=== PATIENT | male | born 1950 | race Caucasian/White ===

== ENCOUNTER → 2024-10-30 12:19 | Outpatient (REF) | payer MEDICARE, SELFPAY | LOC: RAD 12:19 | PROVIDERS: ATTENDING PHYSICIAN Student in an Organized Health Care Education/Training Program | DX: I35.0 Nonrheumatic aortic (valve) stenosis (principal) | CPT/HCPCS: 74174; 75572; Q9967 ==

== ENCOUNTER 2024-11-06 08:20 | Day surgery (SDC) | payer MEDICARE, SELFPAY ==
[2024-11-06] VITALS (14 sets, daily range): BP systolic 92–149; BP diastolic 58–89; BMI 29.4
[2024-11-06 09:13] LABS: INR 1.16; PT 15.3 Sec (11.4-14.6)
[2024-11-06] MEDS: LOW STRENGTH ASPIRIN 324 MG PO (10:12)
--- NOTE | 2024-11-06 11:51 | ITS.CL.PN ---
Addendum entered and electronically signed by Julio C Galvin MD 11/11/24 21:46:
Correct date of procedure: 11/06/2024
Original Note:
[facility] - Procedure Note
Procedure
Procedure Note:
CARDIAC CATHETERIZATION REPORT
Date of Procedure: 08/09/2024
Referring: Dr. Ted Kraus MD
Indication: Severe aortic stenosis
PROCEDURE(S)
1. right heart catheterization
2. left heart catheterization
3. coronary angiography
ACCESS
1. 6F right radial artery (closure: radial band)
2. 5F right antecubital vein (closure: manual hemostasis)
CATHETERS
1. 5F [place]
2. 6F JR4
3. 6F JL3.5
MODERATE SEDATION: 30 minutes of moderate sedation was utilized. An independent medical insurance coding specialist was present to assist with and help manage the patient's level of consciousness and physiologic status.
HEMODYNAMIC DATA
LV 222/20 (EDP 30) mmHg
AO 152/78 (mean 112) mmHg
RA 14 mmHg
RV 57/8 (EDP 17) mmHg
PA 55/24 (mean 37) mmHg
PCWP 26 mmHg
SaO2 95.9 %
SvO2 75.9%
Hb 15.0 g/dL
CO/CI 6.67/3.06 L/min/m2
SVR 1176 dsc*-5
PVR 1.7 Wood units
CORONARY ANGIOGRAPHY
Dominance: Right
LM: Large with minimal disease
LAD: Large vessel giving rise to a large branching D1 supplying much of the anterior wall. There are mild luminal irregularities only.
LCx: Large vessel giving rise to a small OM1 and large OM2. There are mild luminal irregularities only.
RCA: Very large vessel giving rise to a large RPDA and large RPL branch. There are mild luminal irregularities only.
RADIATION: dose to 52 mGy; DAP 18 Gy*cm2; fluoroscopy time 2.5 min
CONCLUSIONS
1. Nonobstructive coronary artery disease in a right dominant system
2. Severe aortic stenosis with peak to peak pullback gradient of 70 mmHg
3. Severely elevated biventricular filling pressures, moderate pulmonary hypertension, normal cardiac output
RECOMMENDATIONS
1. Secondary prevention of coronary artery disease
2. Start PO Lasix 20 qD
2. Proceed with TAVR
Copy to: Dr. Ted Kraus MD (liner checker); Dr. Wallace Horvath DO (PCP)
Signed: Julio C Galvin MD, PhD
== END 2024-11-06 15:35 | disposition home or self-care (01) ==
LOC: CATH 08:20
PROVIDERS: ATTENDING PHYSICIAN Student in an Organized Health Care Education/Training Program; FAMILY PHYSICIAN Student in an Organized Health Care Education/Training Program
DX: I25.10 Atherosclerotic heart disease of native coronary artery without angina pectoris (principal); I35.0 Nonrheumatic aortic (valve) stenosis; I48.91 Unspecified atrial fibrillation; I27.20 Pulmonary hypertension, unspecified; R06.09 Other forms of dyspnea; J45.909 Unspecified asthma, uncomplicated; Z79.01 Long term (current) use of anticoagulants
CPT/HCPCS: 99152; 99153; C1894; 85610; 93460; Q9967

== ENCOUNTER 2024-12-18 08:59 | Inpatient (IN) | payer MEDICARE, SELFPAY ==
[2024-12-11 12:07] VITALS: BMI 30.4
[2024-12-11 13:03] LABS: Urine Character Clear (Clear)
[2024-12-11 13:03] LABS: Hematocrit 43.6 % (39.0-52.0); Hemoglobin 14.8 g/dL (13.0-18.0); Mean Corp Hgb Conc. 33.9 g/dL (33.0-37.0); Mean Corpuscular Volume 91.2 fL (80.0-94.0); Nucleated Red Blood Cells % 0 % (-); Platelet Count 252 10^3/uL (130-400); Red Cell Dist. Width 15.4 % (11.5-14.5)
[2024-12-11 13:08] LABS: INR 2.52; PT 27.2 Sec (11.4-14.6)
[2024-12-11 13:09] LABS: APTT 54.3 Sec (23.4-35.0)
[2024-12-11 13:38] LABS: Urine Squamous Cell 0-2 /LPF (Few)
[2024-12-11 13:40] LABS: Urine Red Blood Cell 0-2 /HPF (0-2); Urine White Cell >100 /HPF (0-5)
[2024-12-11 14:10] LABS: ALT (SGPT) 34 U/L (0-50); AST (SGOT) 28 U/L (17-59); Albumin 4.3 g/dl (3.5-5.0); Alkaline Phosphatase 92 U/L (38-126); Blood Urea Nitrogen 22 mg/dl (9-20); Calcium 9.4 mg/dl (8.4-10.2); Carbon Dioxide 31 mmol/L (22-30); Chloride 107 mmol/L (98-107); Estimated Creatinine Clearance 70 ml/min; Glucose 81 mg/dl (70-99); Potassium 3.3 mmol/L (3.5-5.1); Sodium 145 mmol/L (135-145); Total Protein 6.5 g/dl (6.3-8.2); eGFR > 60.00
--- NOTE | 2024-12-11 14:23 | CM ---
spoke to pt in PAT's, he is prev indep, lives alone in a 1 story home with 1 [address]. he uses a walker when needed. he has the TAVR educ book, soap and in structions. he is agreeable to a f/u visit form the ct transitioanl care nurse after dc.
his daughter is nearby and supportive. plan isfor TAVR 12/18. cm role explained and all questions answered.
[2024-12-11 14:27] LABS: Glycohemoglobin (HgbA1c) 5.5 % (4.0-5.6)
[2024-12-18] VITALS (16 sets, daily range): BP systolic 118–146; BP diastolic 47–83; BMI 30.2
[2024-12-18 10:19] LABS: INR 1.31; PT 16.8 Sec (11.4-14.6)
--- NOTE | 2024-12-18 10:47 | W.CVOR.SURPR ---
CVOR Surgeon Immed Pre Op
-
I have examined this patient prior to performance of the scheduled procedure.
The patient's condition is unchanged from the time of the dictated/written History and
Physical and the patient is able to undergo the scheduled procedure.
TF TAVR
Full Rescue
[2024-12-18] MEDS: ANCEF 10 IV (11:32)
[2024-12-18 12:29] LABS: ACT-LR - POC 369 Seconds (116-155)
--- NOTE | 2024-12-18 13:12 | ITS.CL.PN ---
[facility] - Procedure Note
Procedure
Procedure Note:
TRANSCATHETER AORTIC VALVE REPLACEMENT REPORT
Date of Procedure: 12/18/2024
Referring: Dr. Papa Kraus MD
Indication: severe symptomatic aortic valve stenosis
Operators: Julio C Galvin MD, PhD (interventional cardiology); Dr. Marcos Rose MD (CT surgery)
Anesthesia: conscious sedation provided by the anesthesia staff
PROCEDURE: transfemoral, transcatheter aortic valve replacement with a Medtronic Evolut FX+ 34 mm transcatheter aortic valve
ACCESS:
1. 6F left femoral vein (closure: manual hemostasis) - Ultrasound was utilized for vascular access. The vessel was visualized under ultrasound and noted to be patent. An image of the vessel was stored permanently in the patient's medical record.
Under direct ultrasound guidance, vascular access was obtained using a modified Seldinger technique and a 6 Thai sheath was placed.
2. 6F left common femoral artery (closure: Angioseal) - Ultrasound was utilized for vascular access. The vessel was visualized under ultrasound and noted to be patent. An image of the vessel was stored permanently in the patient's medical record.
Under direct ultrasound guidance, vascular access was obtained using a modified Seldinger technique and a 6 Thai sheath was placed.
3. 18 F right common femoral artery (closure: Perclose x2) - Ultrasound was utilized for vascular access. The vessel was visualized under ultrasound and noted to be patent. An image of the vessel was stored permanently in the patient's medical
record. Under direct ultrasound guidance, vascular access was obtained using a modified Seldinger technique and a 8 Thai sheath was placed.
HEMODYNAMIC DATA
LVEDP 31 mmHg
PROCEDURE NARRATIVE:
The patient was prepped and draped in standard sterile fashion. Conscious sedation was provided by the anesthesia staff. 6F left femoral vein and left common femoral artery access was obtained with ultrasound guidance using micropuncture technique
with verification of appropriate arteriotomy location via hand injection angiography. A temporary venous pacing wire was advanced via the left femoral vein to the right ventricle under fluoroscopic guidance with appropriate capture verified. A 5F
pigtail catheter was advanced via the left common femoral artery and seated in the non-coronary cusp. Angiography was performed to verify the cusp overlap angle.
8F right common femoral artery access was obtained with ultrasound guidance using micropuncture technique with verification of appropriate arteriotomy location via hand injection angiography. The arteriotomy was preclosed with two Perclose sutures
followed by replacement of the 8F sheath. Using an AL1 catheter, a Lunderquist wire was placed in the descending thoracic aorta. A 12F dilator was advanced over the Lunderquist wire followed by placement of a 14F Cook sheath. Heparin 7500 units was
given. The AL1 catheter was re-advanced through the sheath to the level of the ascending aorta. The Lunderquist wire was exchanged for a soft tipped straight wire which was used to cross the aortic valve and deposit the AL1 in the LV apex. A J-wire
was used to exchange the AL1 for a pigtail catheter in the LV and LVEDP was measured. The Lunderquist wire was advanced through the pigtail catheter and seated in the LV apex. ACT was checked and confirmed to be >300 seconds.
The valve was inspected under fluoroscopy to confirm lack of infolding above the 4th node. The Cook sheath was removed, and the in-line sheath was advanced over the Lunderquist wire into the descending aorta. The valve was then advanced over the
aortic arch and into the left ventricle. In the cusp overlap view, the valve was slowly deployed to the point of flowering. The patient was paced to adequately lower pulse pressure as the valve was deployed through the rumble strips to 80%.
Injection demonstrated a non-coronary cusp implant depth of 3 mm. Angiography performed in an BOLIVIAN projection demonstrated left coronary cusp implant depth of 5 mm. The decision was made to proceed with full deployment. The Lunderquist wire was
partially withdrawn to lift the nose cone of the valve delivery device. In the BOLIVIAN view, the delivery handle was slowly rotated until both paddles were released from the superior aspect of the valve. The delivery device was withdrawn to the
descending aorta and re-assembled. The patient was resuscitated by anesthesia with recovery of adequate blood pressure. Telemetry demonstrating sinus rhythm with new bundle branch block. Echocardiography demonstrated mild aortic insufficiency likely
secondary to known LVOT calcification. Mean valve gradient was 7 mmHg.
The valve deployment system and inline sheath were removed, and hemostasis obtained with the two Perclose sutures. Protamine 40 mg was given. Aortoiliac angiography demonstrated no evidence of iliofemoral dissection/perforation and good runoff below
the common femoral artery bilaterally. The pacemaker and the pigtail catheter were removed. The left femoral artery sheath was removed using a 6F Angioseal. The left femoral venous sheath was removed with manual pressure.
RADIATION: dose 520 mGy; DAP 48 Gy*cm2; fluoroscopy time 11 min
CONCLUSIONS
1. successful placement of a Medtronic Evolut FX+ 34 mm transcatheter aortic valve via right transfemoral approach with no acute complications
2. acute on chronic systolic heart failure with elevated filling pressures (LVEDP = 31 mmHg)
Copy to: Dr. Papa Kraus MD (associate chemist); Dr. Wallace Horvath DO (PCP)
Signed: Julio C Galvin MD, PhD
[2024-12-18] MEDS: ANCEF IV (15:18)
--- NOTE | 2024-12-18 16:02 | CM ---
Patient in OR today for planned TAVR procedure.
Reviewed initial assessment. Pt. resides alone in a private, [facility] with 1 JOSE RAMON. Functionally, patient is indep. at baseline w/ ADLs, mobility without the use of any assisted device.
Antic. DC plan is for home w/ CT Transitional Care RN.
CM to follow.
--- NOTE | 2024-12-18 16:23 | W.PN.CT.SURG ---
CT Surgery Operative Note
-
OPERATIVE REPORT
Preoperative Diagnosis: Severe aortic valve stenosis, symptomatic
Postoperative Diagnosis: Same
Procedure(s) Performed: Right trans femoral TAVR with a 34 mm Medtronic Evolut FX+ device
Date of Procedure: 12/18/2024
Comorbidities:
1. Severe symptomatic aortic stenosis
2. Acute on chronic congestive heart failure with LVEDP elevated
Cardiac Surgeon: Marcos Rose MD, MS
Assistant Prosecuting Attorney: Alex Galvin MD
Anesthesia: Conscious Sedation, Local
EBL: 100cc
Products: none
Implant: Medtronic Evolut FX + 34mm SN: [id number]
Indication(s) for Procedures: 74-year-old male with severe aortic stenosis. Symptomatic. CT-TAVR protocol revealed acceptable anatomy for a self-expanding TAVR valve.
Start time: 1152hrs
Deployment time: 1231hrs
End time: 1248hrs
Radiation Dose (mGy): 520.41
DAP (cm2.Gy): 48.1963
Fluoroscopy time (minutes): 11.4
Contrast volume (ml): 95
TAVR gradient (mmHg): 7mmHg
Heparin Dose: 6000units
Protamine Dose: 30mg
Final Valve Positioninmm:5mm
Findings: Preoperative LVEF was 60% and was 60% following TAVR without inotropic support. Function was overall normal without regional wall motion abnormalities or dyskinesia. The aortic valve was well seated with only trace to mild PVL. The patient
did not require pacing postoperative and was in sinus rhythm but did have a new bundle branch block. There was successful placement of 34 mm Evolut FX+ TAVR valve without acute complications. LVEDP was found to be elevated pre-TAVR deployment,
indicating acute on chronic congestive heart failure with volume overload. Lasix will be given in the CVICU.
Access:
1. Device -right common femoral artery, perclose x 2
2. Pigtail -left common femoral artery + 6Fr angioseal
3. Transvenous Pacer -left common femoral vein
Description of Procedure: The patient was taken to the laboratory geneticist. Their identity and procedure to be performed were verified and they were positioned supine on the laboratory geneticist table. Induction via conscious sedation with local analgesia. The patient was
then prepped and draped from chin to thigh in a sterile fashion. A preoperative time-out was performed with all members of the team present. Using fluoroscopy, bilateral femoral heads and their margins were identified. Arterial and venous access
were done with a micropuncture needle with Seldinger technique. Test pacing revealed capture with excellent threshold. Angiography confirmed proper puncture site and femoral artery integrity. Two Per-Close devices were used on the TAVR side. An AL1
catheter was used to deliver a extrastiff wire and insertion of the working sheath. An AL1 catheter with a straight stiff wire was used to access the LV. We then exchanged this for a J-wire followed by a pigtail and ultimately a Lunderquist wire.
The valve was prepped and mounted on to the device carrier. An ACT of >250 was achieved. We verified x 3 under fluoroscopy that the valve was mounted correctly with paddles in appropriate position. A balloon valvuloplasty was then performed under
rapid pacing 180 bpm. We then exchanged for the inline sheath and we than set our parameters to achieve a co-planar view with the pigtail positioned in the NCC. We advanced the device with it's in-line sheath into the descending thoracic aorta and
over the arch into the root and positioned across the aortic valve. Contrast fluoroscopy was used to visualize the prosthesis across the valve. We performed a quick pre-deployment time out. We verified positioning based on the pigtail and gentle
contrast puffs. The valve was slowly deployed to just before annular contact. We paused here and verified positioning in our cusp overlap view. We then rotated AMHARIC and removed any parallax from the valve. Contrast was used to verify the LCC was
appropriate in height. It was and so we slowly continued to deploy the valve until the crowns and paddles were free from the device. At this point the valve was functioning and pacing was stopped. We slowly continued to deploy the valve until the
crowns and paddles were free from the device. The deployment device was withdrawn into the descending thoracic aorta while maintaining wire access across the valve. A transthoracic echocardiogram was performed . The pigtail was re-positioned at the
level of the crown of the valve and angiography revealed excellent placement and seating of the valve at the annulus. The device was removed from the groin as we cinched down the preclose devices while maintaining wire access. There was acceptable
hemostasis. The pigtail was repositioned into the descending/abdominal and runoff aortogram was performed. There was no significant stenosis or dissection of the bilateral iliofemoral systems with excellent runoff to the SFAs. All wires were removed
and perclose snugged and cut. There was acceptable hemostasis of bilateral groins.
All instrument, sponge, and needle counts were confirmed to be correct x 2 at the end of the operation. The patient was transferred to the cardiac intensive care unit in stable condition.
I, Dr. Marcos Rose, was present, scrubbed for, and performed all critical elements of this procedure.
Marcos Rose MD, MS
Cardiothoracic Surgeon
[facility]
This operative dictation was created using the MyCadbox dictation system. Please excuse any grammatical, typographical, or 'sound alike' errors
[2024-12-18] MEDS: LASIX 20 MG IV (17:18)
[2024-12-18] MEDS: TYLENOL 650 MG PO (17:19)
[2024-12-18] MEDS: COUMADIN 5 MG PO (17:58)
[2024-12-18] MEDS: REFRESH CELLUVISC GEL RIGHT EYE ×2 (18:01→21:30)
--- NOTE | 2024-12-18 18:49 | PTCARENOTE ---
Pt received from recovery area post TAVR. Pt c/o low back pain but declined any pain medication. Bilateral femoral sites with dry and intact dressings, no sign of bleeding or hematoma, bounding DP pulses. Pt voiding in 100ML amounts. Pt OOB with
assist of one using a walker. Pt is very stiff and on fall precautions due to a fall one month ago, pt states understanding of these precautions and is calling for assistance. Neuro assessment is at pts baseline and unremarkable. Telemetry shows
sinus rhythm with a new LBBB. Plan to send home with rhythm star home monitor, pt is apprehensive about this device and will need careful teaching at [place].
--- NOTE | 2024-12-18 19:28 | PTCARENOTE ---
Pt with rapid wide tachycardia while sitting in a chair, pt aware of rapid beats'for a few seconds'. Pt stated he sometimes has this feeling 'with his atrial fib' SAUL Alan notified, plan to give additional potassium supplement now and
monitor closely.
[2024-12-18] MEDS: KCL 20 MEQ PO (19:30)
[2024-12-18] MEDS: ANCEF 5 IV (19:31)
--- NOTE | 2024-12-18 19:49 | PTCARENOTE ---
pt with 36 beats of wide complex tachycardia. Pt stated he felt some palpitations. VSS Potassium 20 meq stat given
[2024-12-18] MEDS: PEPCID 20 MG PO (21:29)
[2024-12-18] MEDS: NON-FORMULARY ITEM 1 UNIT PO (21:31)
[2024-12-18] MEDS: NON-FORMULARY ITEM PO (23:02)
[2024-12-18] MEDS: SINGULAIR 10 MG PO (23:11)
--- NOTE | 2024-12-19 00:24 | W.PN.CT ---
Addendum entered and electronically signed by Marcos Rose MD 12/19/24 08:25:
Looks good this morning, having breakfast. Needs an echo and then discharged once his monitor has been set up.
Original Note:
Today's Communication / Plan
-
pod #1
- continue Coumadin for TAVR/permanent AF
- DC home pending ECG, CXR, TTE review
- Heart monitor on DC for LBBB post-procedure (resolved)
- antibioric prophylaxis for dental/invasive procedures
Assessment / Plan
-
POD #1 s/p R TF TAVR #34 mm Medtronic Evolut FX+
- new LBBB post procedure
- Lasix 20mg IV post procedure
- pre-procedure E. Coli UTI treated with Macrobid
PMH:
- Severe symptomatic aortic stenosis
- Acute on chronic congestive heart failure with LVEDP elevated
- pre-procedure E. Coli UTI-treated
- asthma
- COPD
- permanent atrial fibrillatio on Coumadin
- herpes R eye on Vacyclovir
Discussed patient care with: Nursing and Care Team
Subjective
Procedure
R TF TAVR #34 mm Medtronic Evolut FX+ by Dr. Rose 12/18/24
-
Date of Service: December 19, 2024
Objective Data
-
PT 16.8 Sec (11.4-14.6) H 12/18/24 09:57
INR 1.31 12/18/24 09:57
APTT 54.3 Sec (23.4-35.0) H 12/11/24 12:22
Vital Signs
Vital Signs
Temp Pulse Resp BP Pulse Ox
98.7 F 94 17 146/52 96
12/18/24 22:49 12/18/24 19:48 12/18/24 22:49 12/18/24 17:00 12/18/24 22:49
CT Intake/Output/Weight
12/18/24 12/18/24 12/19/24
06:59 18:59 06:59
Intake Total 1190 / 1190
Output Total 275 / 275
Balance 915 / 915
SaO2: 96
Physical Exam
-
General: AOx3
Cardiovascular: Regular rate & rhythm
Respiratory: Clear and Equal
Incision: Dressing Intact (B/L groin dressings; no hematoma/bleeding)
Extremities: No Edema and No Erythema
Data Reviewed
-
Lab Results: Results Reviewed
Medications: Active Meds Reviewed
Chest X-Ray: Image Reviewed
ECG: Image Reviewed
[2024-12-19 04:09] VITALS: BP 132/78
[2024-12-19 04:35] VITALS: BMI 33.0
[2024-12-19 04:57] LABS: Hematocrit 40.6 % (39.0-52.0); Hemoglobin 14.0 g/dL (13.0-18.0); Mean Corp Hgb Conc. 34.5 g/dL (33.0-37.0); Mean Corpuscular Volume 92.3 fL (80.0-94.0); Platelet Count 197 10^3/uL (130-400); Red Cell Dist. Width 14.8 % (11.5-14.5)
[2024-12-19 05:13] LABS: Blood Urea Nitrogen 20 mg/dl (9-20); Calcium 9.0 mg/dl (8.4-10.2); Carbon Dioxide 28 mmol/L (22-30); Chloride 109 mmol/L (98-107); Estimated Creatinine Clearance 91 ml/min; Glucose 88 mg/dl (70-99); Potassium 3.4 mmol/L (3.5-5.1); Sodium 144 mmol/L (135-145); eGFR > 60.00
[2024-12-19] MEDS: KCL 20 MEQ PO (06:00)
[2024-12-19 07:16] VITALS: BP 129/52
[2024-12-19] MEDS: NON-FORMULARY ITEM 1 INH INH (08:25)
--- NOTE | 2024-12-19 08:27 | W.PN.ANS.POP ---
Anesthesia Post Operative
- Anesthesia Post Op Note
Vital Signs Stable-See Nursing Note: Yes
Airway Patent: Yes
Adequate Pain Control: Yes
Change in Mental Status: No
Current Postoperative Nausea & Vomiting: No
Anesthesia Complications: No
General Anesthetic Recall: No
Unplanned Admission: No
Post Op Hydration Adequate: Yes
[2024-12-19 08:32] LABS: Hepatitis C Antibody Negative (Negative)
--- NOTE | 2024-12-19 08:58 | W.DCSUMMARY ---
Discharge Summary
Discharge Data
Date of Admission: 12/18/24
Date of Discharge: 12/19/24
Total time spent discharging patient (in min): 28
-
Pending Results: No
Hospital Course
Primary care physician: Wallace Horvath MD
Outpatient hotel front desk clerk: Ted Kraus MD
Inpatient consultants: Cardiology
Procedures:
1. Right transfemoral transcatheter aortic valve replacement with a 34 mm Medtronic evolut FX+ by Drs. Rose and Kavin
Primary Diagnosis:
Severe aortic stenosis
Secondary Diagnoses:
New left bundle branch block post procedure
Acute on chronic congestive heart failure with elevated LVEDP postprocedure requiring IV Lasix
Asthma/chronic obstructive pulmonary disease
Permanent A-fib on Coumadin
Herpes right eye on valacyclovir
HPI: The patient was seen and evaluated in our outpatient clinic for consideration of aortic valve replacement. He was deemed an inappropriate open surgical candidate. He underwent necessary preoperative testing and was deemed an appropriate TAVR
candidate by the attending surgeon. He was scheduled for an admitted electively for his transcatheter aortic valve replacement.
Hospital course: Patient was admitted electively and underwent the above-mentioned procedure. Please refer to Dr. Rose and Dr. Vale separately dictated operative reports for complete details. Notably during the procedure the patient did develop
a new left bundle branch block. He was given IV Lasix on the day of the procedure for noted elevated LVEDP. He otherwise recovered well. By postoperative day #1 he was on room air and hemodynamically stable. A rhythmStar monitor was set up for
further monitoring of his rhythm by cardiology. He underwent TTE prior to discharge. Discharge instructions were reviewed extensively with the patient his questions were answered to his satisfaction prior to leaving today.
Home medication changes: None
Discharge Plan
-
Patient Disposition: Home (Routine Discharge)
Discharge Diagnosis/Procedures: 1. Severe aortic stenosis status post right transfemoral TAVR 34 mm Medtronic evolut FX+
2. New left bundle branch block post procedure
3. Acute on chronic congestive heart failure with elevated LVEDP postprocedure requiring IV Lasix
4. Asthma/chronic obstructive pulmonary disease
5. Permanent A-fib on Coumadin
6. Herpes right eye on valacyclovir
Diet: Low Fat, Low Cholesterol and 2 Gram Sodium
Activity: As tolerated
Driving Restrictions: No driving for 1 week
Bathing Restrictions: OK to Shower
Others Tests: Please call Dr. Krasu's office to schedule your 30-day follow up echocardiogram
You will need lifelong preprocedural/predental antibiotic prophylaxis for any future dental procedures
Other Services: Cardiac Rehab
Wound Care: NO lotions, Powders, Or creams to puncture sites
Specialty Instructions: Weigh Daily- Call MD for wt gain/loss 3 lbs overnight/5 lbs in 1 week
Referrals:
CT Transitional Care Nurse [Outside] - in one to two days
Referral Note:
The Cardiothoracic Transitional Care Nurse will call you to set up a visit in 1-2 days.
Wallace Horvath DO [Family Provider] - in four to six weeks
Referral Note: Please make an appointment in four to six weeks.
Ted Kraus MD [Non-Admitting Privileges, Cardiology] - 02/02/25 2:40 pm
Prescriptions:
Continued
lactase [Lactaid] 3,000 unit Tablet
3,000 unit PO AC PRN (Reason: lactose intol)
multivitamin Tablet
1 tab PO DAILY Qty: 0 0RF
ascorbic acid (vitamin C) [Vitamin C] 1,000 mg Tablet
1,000 mg PO DAILY Qty: 0 0RF
atorvastatin 20 mg Tablet
20 mg PO DAILY Qty: 0 0RF
valacyclovir 1 gram Tablet
1,000 mg PO DAILY Qty: 0 0RF
warfarin 10 mg Tablet
10 mg PO WESA Qty: 0 0RF
diltiazem HCl 240 mg Capsule,Extended Release 24hr
240 mg PO DAILY Qty: 0 0RF
Stool Softener 50 mg Capsule
50 mg PO HS Qty: 0 0RF
omeprazole 40 mg Capsule,Delayed Release(Dr/Ec)
40 mg PO DAILY Qty: 0 0RF
acetaminophen 500 mg Tablet
1,000 mg PO BID Qty: 0 0RF
guaifenesin 200 mg Tablet
200 mg PO BID Qty: 0 0RF
famotidine [Pepcid] 20 mg Tablet
20 mg PO HS Qty: 0 0RF
triamcinolone acetonide [Nasacort] 55 mcg Aerosol,[place]
1 spray INTRANASAL DAILY Qty: 0 0RF
warfarin 5 mg Tablet
5 mg PO SUMOTUTHFR Qty: 0 0RF
lisinopril-hydrochlorothiazide 20-25 mg Tablet
1 tab PO DAILY Qty: 0 0RF
montelukast [Singulair] 10 mg Tablet
10 mg PO DAILY Qty: 0 0RF
furosemide [Lasix] 20 mg tablet
20 mg PO DAILY Qty: 90 5RF
azelastine 137 mcg (0.1 %) [place],Non-Aerosol
1 spray INTRANASAL BID Qty: 0 0RF
albuterol sulfate 90 mcg/actuation Hfa Aerosol Inhaler
2 puff INHALATION BID Qty: 0 0RF
carboxymethylcellulose sodium 1 % Drops, Liquid Gel
1 drp RIGHT EYE TID Qty: 0 0RF
glucosamine sulfate 750 mg Tablet
750 mg PO DAILY Qty: 0 0RF
levocetirizine [Xyzal] 5 mg Tablet
5 mg PO DAILY Qty: 0 0RF
Trelegy Ellipta 100-62.5-25 mcg Blister With Device
1 inh INHALATION DAILY Qty: 0 0RF
Oil Peppermint
1 dose PO PC Qty: 0 0RF
Probiotic
1 dose PO DAILY Qty: 0 0RF
fiber
2 cap PO DAILY Qty: 0 0RF
prednisolone acetate
1 drp RIGHT EYE DAILY Qty: 0 0RF
Discontinued
pseudoephedrine HCl [Sudafed] 30 mg Tablet
30 mg PO ONCE PRN (Reason: congestion)
Discharge Orders:
Discharge Patient (As Directed); Ordered 12/19/24
Ordered By: Manav Manning
Discharge Date and Time
Print Language: LAO
[2024-12-19] MEDS: VITAMIN C 1000 MG PO (09:34)
[2024-12-19] MEDS: ORETIC 25 MG PO (09:34)
[2024-12-19] MEDS: LASIX 20 MG PO (09:34)
[2024-12-19] MEDS: PROTONIX 40 MG PO (09:35)
[2024-12-19] MEDS: THERAGRAN 1 TABLET PO (09:35)
[2024-12-19] MEDS: ZESTRIL 20 MG PO (09:35)
[2024-12-19] MEDS: CARDIZEM CD 240 MG PO (09:35)
[2024-12-19] MEDS: VALTREX 1000 MG PO (09:36)
[2024-12-19] MEDS: REFRESH CELLUVISC GEL 1 DROPS RIGHT EYE (09:36)
[2024-12-19] MEDS: NON-FORMULARY ITEM 1 UNIT PO ×2 (09:38→09:45)
[2024-12-19] MEDS: TYLENOL 650 MG PO (11:04)
--- NOTE | 2024-12-19 11:59 | PTCARENOTE ---
Received patient this morning sitting oob in the chair. Right groin site with old drainage, left groin site is dry and intact, both groins are ecchymotic but soft with palpable pedal pulses. Echo done at the bedside and patient is stable for
discharge. Will need rhythm star monitor applied before he leave. Anticipates that his daughter with pick him up at 1400. Medicated with tylenol for neck/shoulder/back aches, using the rolling walker to ambulate and ambulated in the caceres earlier
with the PCT. Sitting oob in the chair now.
[2024-12-19 12:21] VITALS: BP 140/58
--- NOTE | 2024-12-19 15:20 | PTCARENOTE ---
The patient's daughter came in to drive the patient home, she is asking him to come stay with her for a few days, he is reluctant, but considering it. Very anxious over rhythm star monitor which was placed on him in front of the daughter, but he
appears overwhelmed. Shown QR code in the book and his daughter will view the video with him at home. Has a good understanding of his home medications, but had several questions about HF diet, daily weights and fluid restriction. Daughter
continually stressing to her dad that he needs to be compliant with recommendations and not eat 'fast foods'. Patient discharged home with his daughter, with CT transitional nurse follow up.
== END 2024-12-19 15:00 | disposition home or self-care (01) | DRG 266 ==
LOC: IVU 08:59
PROVIDERS: Nurse Practitioner Acute Care; Physician Assistant Medical; ADMITTING PHYSICIAN Thoracic Surgery (Cardiothoracic Vascular Surgery); CONSULT PHYSICIAN Student in an Organized Health Care Education/Training Program; FAMILY PHYSICIAN Student in an Organized Health Care Education/Training Program; REFERRING PHYSICIAN Internal Medicine Cardiovascular Disease
PROC: 02RF38Z Replacement of Aortic Valve with Zooplastic Tissue, Percutaneous Approach (ICD-10-PCS; 2024-12-18)
DX: I35.0 Nonrheumatic aortic (valve) stenosis (principal); Z00.6 Encounter for examination for normal comparison and control in clinical research program; I50.23 Acute on chronic systolic (congestive) heart failure; I48.21 Permanent atrial fibrillation; B02.30 Zoster ocular disease, unspecified; I44.7 Left bundle-branch block, unspecified; J44.89 Other specified chronic obstructive pulmonary disease; Z79.01 Long term (current) use of anticoagulants
CPT/HCPCS: 33361; 36415; 71045; 71046; 80048; 80053; 81003; 81015; 82248; 83036; 83880; 85025; 85027; 85347; 85610; 85730; 86803; 86850; 86900; 86901; 87070; 87077; 87086; 87186; 93005; 93308; 93321; 93325; 94640; C1760; C1769; C1894; Q9967

== ENCOUNTER 2025-01-12 16:05 | Outpatient (RCR) | payer MEDICARE, SELFPAY | END 2025-01-12 23:59 | disposition home or self-care (01) | LOC: CRHB 16:05 | PROVIDERS: ATTENDING PHYSICIAN Internal Medicine Cardiovascular Disease | DX: Z95.4 Presence of other heart-valve replacement (principal) | CPT/HCPCS: G0422; G0423 ==

== ENCOUNTER → 2025-05-05 13:32 | Outpatient (REF) | payer MEDICARE, SELFPAY ==
[2025-05-05 16:00] LABS: ALT (SGPT) 28 U/L (0-50); AST (SGOT) 24 U/L (17-59); Albumin 4.0 g/dl (3.5-5.0); Alkaline Phosphatase 70 U/L (38-126); Blood Urea Nitrogen 11 mg/dl (9-20); Calcium 8.9 mg/dl (8.4-10.2); Carbon Dioxide 30 mmol/L (22-30); Chloride 105 mmol/L (98-107); Glucose 68 mg/dl (70-99); Potassium 3.9 mmol/L (3.5-5.1); Sodium 139 mmol/L (135-145); Total Protein 6.3 g/dl (6.3-8.2); eGFR > 60.00
== END ==
LOC: REG 13:32
PROVIDERS: ATTENDING PHYSICIAN Specialist; FAMILY PHYSICIAN Student in an Organized Health Care Education/Training Program; REFERRING PHYSICIAN Student in an Organized Health Care Education/Training Program
DX: Z01.818 Encounter for other preprocedural examination (principal)
CPT/HCPCS: 36415; 80053

== ENCOUNTER → 2025-05-12 13:09 | Outpatient (REF) | payer MEDICARE, SELFPAY | LOC: RAD 13:09 | PROVIDERS: ATTENDING PHYSICIAN Specialist; FAMILY PHYSICIAN Student in an Organized Health Care Education/Training Program | DX: D41.4 Neoplasm of uncertain behavior of bladder (principal) | CPT/HCPCS: 74177; Q9967 ==

== ENCOUNTER → 2025-06-01 12:04 | Outpatient (REF) | payer MEDICARE, SELFPAY ==
[2025-06-01 14:24] LABS: Hematocrit 40.4 % (39.0-52.0); Hemoglobin 13.3 g/dL (13.0-18.0); Mean Corp Hgb Conc. 32.9 g/dL (33.0-37.0); Mean Corpuscular Volume 90.0 fL (80.0-94.0); Platelet Count 243 10^3/uL (130-400); Red Cell Dist. Width 15.6 % (11.5-14.5)
== END ==
LOC: SDSPAT 12:04
PROVIDERS: ATTENDING PHYSICIAN Specialist; FAMILY PHYSICIAN Student in an Organized Health Care Education/Training Program
DX: N40.1 Benign prostatic hyperplasia with lower urinary tract symptoms (principal); C67.9 Malignant neoplasm of bladder, unspecified; Z01.818 Encounter for other preprocedural examination
CPT/HCPCS: 36415; 85027; 93005

== ENCOUNTER 2025-06-05 06:22 | Day surgery (SDC) | payer MEDICARE, SELFPAY ==
[2025-06-01 12:16] VITALS: BMI 28.1
--- NOTE | 2025-06-01 15:43 | PTCARENOTE ---
Patients 06/01 ECG abnormal- reviewed by Dr. Merida- no additional interventions required.
[2025-06-05] VITALS (13 sets, daily range): BP systolic 113–158; BP diastolic 52–87; BMI 28.1
[2025-06-05] MEDS: CYSVIEW KIT 100 MG INTRAVES (08:20)
[2025-06-05] MEDS: NORMOSOL-R/PLASMALYTE-A 1000 IV (08:43)
[2025-06-05] MEDS: DILAUDID 0.25 MG IV (11:12)
[2025-06-05] MEDS: SYRINGE NON-PUMP 50 MG IRRIG ×2 (11:15→11:16)
[2025-06-05] MEDS: SYRINGE NON-PUMP 50 ML IRRIG ×2 (11:15→11:16)
[2025-06-05] MEDS: MORPHINE SULFATE 1 MG IV ×2 (11:42→11:55)
--- NOTE | 2025-06-05 13:10 | PTCARENOTE ---
Patient admitted from [facility] post TURP and TURBT secondary to bladder cancer.The patient is alert and oriented.He reports his pain at a zero.The bladder irrigation is infusing with pink urine.Chemo precautions in place.Vital signs are stable.The
patient is in his bed with the call traylor in place.
[2025-06-05] MEDS: COLACE 100 MG PO (14:34)
[2025-06-05] MEDS: COLACE PO (18:45)
[2025-06-05] MEDS: LIPITOR 20 MG PO (18:46)
[2025-06-05] MEDS: TYLENOL 1000 MG PO (20:31)
[2025-06-05] MEDS: NON-FORMULARY ITEM 1 UNIT PO (21:54)
[2025-06-05] MEDS: PEPCID 20 MG PO (21:55)
[2025-06-05] MEDS: SINGULAIR 10 MG PO (21:55)
[2025-06-06 03:23] VITALS: BP 121/54
[2025-06-06 07:40] LABS: Hematocrit 43.2 % (39.0-52.0); Hemoglobin 14.3 g/dL (13.0-18.0)
[2025-06-06] MEDS: KCL 20 MEQ PO (08:33)
[2025-06-06] MEDS: PROTONIX 40 MG PO (08:33)
[2025-06-06] MEDS: LOW STRENGTH ASPIRIN 81 MG PO (08:33)
[2025-06-06] MEDS: VALTREX 1000 MG PO (08:34)
[2025-06-06] MEDS: TYLENOL 1000 MG PO (08:34)
[2025-06-06] MEDS: ZESTRIL 30 MG PO (08:34)
[2025-06-06] MEDS: CARDIZEM CD 240 MG PO (08:36)
[2025-06-06 08:37] VITALS: BP 160/53
[2025-06-06] MEDS: NON-FORMULARY ITEM 1 UNIT PO (08:38)
[2025-06-06] MEDS: COLACE PO ×2 (08:40→13:00)
--- NOTE | 2025-06-06 10:55 | W.PN.URO.CBU ---
Today's Communication / Plan
-
TOV
Discharge after voiding
Assessment / Plan
-
- Remove giang this AM for trial of void
- Likely discharge
- Hold blood thinners until 06/10
- Follow up with Dr. Sheriff
Diagnosis
-
Date of Service: June 06, 2025
-
Patient Diagnosis:
Bladder tumor
BPH
Post Op Day: s/p TURP/TURBT
Subjective
-
no events
minimal pain
Objective
-
Vital Signs
Temp Pulse Resp BP Pulse Ox
98.7 F 81 16 160/53 94
06/06/25 08:37 06/06/25 08:37 06/06/25 08:37 06/06/25 08:37 06/06/25 08:37
Intake and Output
06/05/25 06/06/25 06/07/25
06:59 06:59 06:59
Intake Total 500 / 500
Output Total 4300 / 4300
Balance -3800 / -3800
Intake:
Oral fluids 200 / 200
IV fluids (Total) 300 / 300
Normosal 300 / 300
Output:
Urine, Giang 3200 / 3200
True Urine Output from CBI 1100 / 1100
Laboratory Results
06/06/25 07:11
Physical Exam
-
General - well developed, well nourished, no acute distress
Chest - clear
Urine light pink with CBI off
[2025-06-06 11:37] VITALS: BP 113/69
--- NOTE | 2025-06-06 11:49 | CM ---
Met with patient at bedside
[facility] form explained; form signed @ [phone]
Pharmacy verified: [facility] @ [address] [facility]
Family Physician verified: Dr. Wallace Horvath, [address] [place] [phone];
Lives alone in a one bedrorom studio apartment; [facility] community; elevator access; bath is handicap accessible
PLOF: independent w/ ADLS, ambulates w/ rollator; manages his own meals; no family readily available to assist w/ ADLs if needed; drives; retired
Plan: Discharge to home today; daughter will transport
[2025-06-06] MEDS: IMODIUM 2 MG PO (15:12)
[2025-06-06 15:34] VITALS: BP 149/61
== END 2025-06-06 18:00 | disposition home or self-care (01) ==
LOC: SDS 06:22
PROVIDERS: ATTENDING PHYSICIAN Specialist; FAMILY PHYSICIAN Thoracic Surgery (Cardiothoracic Vascular Surgery)
DX: N40.0 Benign prostatic hyperplasia without lower urinary tract symptoms (principal); N30.20 Other chronic cystitis without hematuria; N32.3 Diverticulum of bladder; N35.911 Unspecified urethral stricture, male, meatal; D49.4 Neoplasm of unspecified behavior of bladder
CPT/HCPCS: 52601; 51720; 52235; C9738; 85014; 85018; 88305; 88307; 88341; 88342; A9589; J9201